=== PATIENT | male | born 1955 | race Caucasian/White ===

== ENCOUNTER 2016-12-02 12:41 | Emergency (ER) | payer OTHER ==
[2016-12-02] MEDS ORDERED: ASPIRIN 81 MG CHEW TAB ONE (12:57)
[2016-12-02] MEDS ORDERED: LIDOCAINE 2% VISC 15 ML UDC ONE (13:27)
[2016-12-02] MEDS ORDERED: ALU/MAG/SIM 30 ML UDC ONE (13:27)
== END 2016-12-02 15:40 | disposition home or self-care (01) ==
LOC: ER 12:41
DX: R07.2 Precordial pain (principal); Z79.899 Other long term (current) drug therapy; F17.210 Nicotine dependence, cigarettes, uncomplicated
CPT/HCPCS: 36415; 71010; 80053; 82550; 83735; 84484; 85025; 85610; 85730; 93005